=== PATIENT | male | born 1990 ===

== ENCOUNTER 2017-05-12 18:32 | Emergency (ER) | payer OTHER ==
[2017-05-12 18:38] VITALS: BP 126/84; PULSE 82; RESP 18; BMI 24.2
[2017-05-12 19:29] VITALS: TEMP 98.2
--- NOTE | 2017-05-12 19:50 | ED PDOC ---
Arrival/HPI - General Historian: Patient - General Chief Complaint: Eye Problem Time Seen by Provider: 05/12/17 18:55 - History of Present Illness Narrative History of Present Illness (Text): 05/12/17 21:10 Patient reports sustaining head trauma when he was struck at the left side of his face with a pipe at work prior to arrival. Patient states that he was wearing a hardhat but no protective eyewear, however he sustained a laceration to his left upper eyelid. Denies any eye pain or decrease in his vision. Otherwise: (-) loss of consciousness, (-) nausea, (-) vomiting, (-) headache, ( -) other injury, (-) neck pain, (-) subjective neurologic deficit, (-) anticoagulants. Has no history of prior significant head injury. (Jl Merritt,Betty Reid) Past Medical History - Provider Review Nursing Documentation Reviewed: Yes - Infectious Disease Hx of Infectious Diseases: None - Tetanus Immunization Tetanus Immunization: Unknown - Psychiatric Hx Substance Use: No - Anesthesia Hx Anesthesia: No Hx Anesthesia Reactions: No Hx Malignant Hyperthermia: No Family/Social History - Physician Review Nursing Documentation Reviewed: Yes Family/Social History: No Known Family HX Smoking Status: Never Smoked Hx Alcohol Use: Yes Frequency of alcohol use: Socially Hx Substance Use: No Allergies/Home Meds Allergies/Adverse Reactions: Allergies No Known Allergies Allergy (Verified 05/12/17 19:37) Review of Systems - Review of Systems Constitutional: Normal. absent: Fatigue, Weight Change, Fevers Eyes: Normal. absent: Vision Changes, Photophobia, Eye Pain Respiratory: Normal. absent: SOB, Cough, Sputum Cardiovascular: Normal. absent: Chest Pain, Palpitations, Edema Musculoskeletal: Normal. absent: Arthralgias, Back Pain, Neck Pain Skin: Normal, Laceration. absent: Rash, Pruritis Neurological: Normal. absent: Headache, Dizziness, Focal Weakness Physical Exam - Physical Exam Narrative Physical Exam (Text): 05/12/17 21:11 GENERAL APPEARANCE: Patient is awake, alert, oriented x 3, in no acute distress. SKIN: Warm, dry; (-) cyanosis. HEAD: (-) swelling and tenderness, with no palpable bony defect. EYES: (+) mild edema and ecchymosis to the L upper eyelid with (+) 1 cm superficial laceration, (+) PAOLO, (-) hyphema, (-) conjunctival pallor, (-) scleral icterus, (-) nystagmus. ENMT: Mucous membranes moist. (-) Iglesias's sign. TMs: (-) blood. Nose: (- ) tenderness, (-) rhinorrhea. No oral trauma. Pharynx clear. Airway patent: (-) stridor. Full ROM of mandible without pain. NECK: (-) tenderness, (-) stiffness, (-) lymphadenopathy. CHEST AND RESPIRATORY: (-) chest wall tenderness. Lungs: (-) rales, (-) rhonchi, (-) wheezes; breath sounds equal bilaterally. HEART AND CARDIOVASCULAR: (-) irregularity; (-) murmur, (-) gallop. ABDOMEN AND GI: Soft; (-) tenderness. BACK: (-) tenderness. EXTREMITIES: (-) deformity, (-) tenderness, (-) limitation of motion NEURO AND PSYCH: GCS=15. Mental status as above. Has full memory of episode; welder repair: Pupils equal & reactive . EOMI. (-) facial asymmetry. Tongue and uvula midline. Strength 5/5 in all extremities. No gross sensory deficits. DTRs symmetric. (Jl STOVER,Betty Reid) Vital Signs Temp Pulse Resp BP Pulse Ox 05/12/17 20:09 18 99 05/12/17 19:29 98.2 F 82 18 98 05/12/17 18:35 98.6 F 82 18 126/84 99 Medical Decision Making ED Course and Treatment: I was available for consultation during PA evaluation. The chart was reviewed by me, and I agree with disposition. The documented history was done by the physician logistics coordinator. The documented physical exam was done by the physician logistics coordinator. The documented procedures were done by the physician logistics coordinator. (Bernard Crenshaw) 05/12/17 19:47 27-year-old male presents to the emergency room after he was struck with a pipe at work prior to arrival and sustained head injury and a laceration to the left upper eyelid. Laceration was copiously irrigated with normal saline, bacitracin and cleaned dressing applied. Tdap IM, keflex PO and tylenol po was given to the patient. Patient advised to keep the wound clean, advised to clean the wound daily with regular soap and water, apply topical antibiotic and clean dressing daily. Patient advised to follow-up with Workmen's Compensation in 2 days without fail for reevaluation. Advised to return to the ER anytime for any new or worsening symptoms. Patient states he fully agrees with and understands discharge instructions. States that he agrees with the plan and disposition. Verbalized and repeated discharge instructions and plan. I have given the patient opportunity to ask any additional questions. (Jl STOVER,Betty Reid) - Medication Orders Current Medication Orders: Discontinued Medications Acetaminophen (Tylenol 325mg Tab) 975 mg PO STAT STA Stop: 05/12/17 19:52 Last Admin: 05/12/17 20:08 Dose: 975 mg Cephalexin Monohydrate (Keflex) 500 mg PO STAT STA PRN Reason: Protocol Stop: 05/12/17 19:52 Last Admin: 05/12/17 20:08 Dose: 500 mg Tetanus/Reduced Diphtheria/Acell Pertussis (Boostrix Vaccine Inj) 0.5 ml IM .ONCE ONE Stop: 05/12/17 19:52 Last Admin: 05/12/17 20:08 Dose: 0.5 ml - PA / [employer]EL [employer]INE [employer]IPE [employer] / Resident Statement / has reviewed & agrees with the documentation as recorded. Disposition/Present on Arrival - Present on Arrival Any Indicators Present on Arrival: No History of DVT/PE: No History of Uncontrolled Diabetes: No Urinary Catheter: No History of Decub. Ulcer: No History Surgical Site Infection Following: None - Disposition Have Diagnosis and Disposition been Completed?: Yes Disposition Time: 19:47 Patient Plan: Discharge - Disposition Diagnosis: Eyelid laceration, left, Facial contusion, Head injury Disposition: HOME/ ROUTINE Condition: STABLE Discharge Instructions (ExitCare): Laceration (ED), Head Injury (ED) Print Language: ROMANIAN Additional Instructions: Follow up with workmen's comp physician in 1-2 days without fail. Apply ice to affected area, keep wound clean and dry. Clean every day with soap and water. Take medication as prescribed. Return to the emergency room at any time for any new or worsening symptoms. Prescriptions: Cephalexin [Keflex] 500 mg PO Q6 #28 capsule Referrals: [facility] [place] - Follow up with primary PCP,NO [Primary Care Provider] - Follow up with primary Forms: WORK NOTE
[2017-05-12] MEDS ORDERED: TDAP Vaccine 0.5 mL Syr IM ONE (19:51)
[2017-05-12 20:10] VITALS: O2SAT 99
== END 2017-05-12 20:10 | disposition home or self-care (01) ==
LOC: ED 18:32
DX: S01.112A Laceration without foreign body of left eyelid and periocular area, initial encounter (principal); W22.8XXA Striking against or struck by other objects, initial encounter; Y93.89 Activity, other specified; Y92.69 Other specified industrial and construction area as the place of occurrence of the external cause; Y99.8 Other external cause status; Z23 Encounter for immunization